=== PATIENT | female | born 1975 | race Hispanic/Latino ===

== ENCOUNTER → 2025-08-06 | Outpatient (CLI) | payer MEDICAID ==
[~2025-08-06] MED LIST: GADOTERATE MEGLUMINE 10 MMOL/20 ML VIAL IV ONE
--- NOTE | 2025-08-06 23:35 | HMCIMG ---
EXAM: MRI ABDOMEN WITH AND WITHOUT INTRAVENOUS CONTRAST Technique: Multiplanar, multisequence magnetic resonance imaging of the abdomen before and after intravenous gadolinium administration (T1- and T2-weighted, in- and opposed-phase, fat-suppressed, diffusion-weighted, and dynamic post-contrast sequences). Contrast: Gadoteric acid (Clariscan) 0.5 mmol/mL, 15 mL, intravenous. Clinical Information: History of right renal cell carcinoma (C64.1). Findings: Liver: Measures 14.8 cm with mild hepatic steatosis; no suspicious enhancing hepatic lesion. Gallbladder and biliary tree: Status post cholecystectomy; common bile duct measures 6 mm without intrahepatic biliary dilatation. Pancreas: Main pancreatic duct measures 1.2 mm; normal parenchymal signal and enhancement; no focal lesion. Spleen: Normal size and signal; no focal lesion. Adrenal glands: Normal bilaterally. Kidneys and ureters: Well-circumscribed heterogeneously enhancing mass arising from the superior pole of the right kidney measuring 2.5 ??? 2.8 cm; no macroscopic fat identified; no gross venous invasion or perinephric extension is seen on this exam. Simple exophytic renal cyst in the upper pole of the left kidney measuring 1.7 cm; additional kidneys otherwise unremarkable without hydronephrosis. Bowel: Visualized bowel loops are unremarkable without focal mural thickening. Lymph nodes: No pathologically enlarged abdominal lymph nodes. Vasculature: Major abdominal vessels of normal caliber and course on non-angiographic sequences. Abdominal wall/soft tissues: Unremarkable. Osseous structures: Degenerative changes in the visualized spine; posterior pedicle screw fixation at L3???L4 and T10???T12, partially imaged. IMPRESSION: 1. Heterogeneously enhancing right renal mass (2.5 ??? 2.8 cm) in the superior pole, compatible with renal cell carcinoma. No gross venous invasion or perinephric extension. Recommend urologic/oncologic management; correlation with prior operative history and consideration of nephron-sparing approaches where appropriate. Chest imaging for staging and multidisciplinary review are advised per institutional protocol. 2. Left renal simple cyst (1.7 cm), Bosniak I. 3. Mild hepatic steatosis without suspicious hepatic lesions. 4. Status post cholecystectomy; common bile duct 6 mm without intrahepatic biliary dilatation. 5. No pathologically enlarged abdominal lymph nodes. 6. Degenerative changes in the visualized spine; posterior pedicle screw fixation at L3???L4 and T10???T12, partially imaged. /[place]
--- NOTE | 2025-08-06 23:36 | HMCIMG ---
EXAM: MRI PELVIS WITH AND WITHOUT INTRAVENOUS CONTRAST Technique: Multiplanar, multisequence magnetic resonance imaging of the pelvis before and after intravenous gadolinium administration. Contrast: Gadoteric acid (Clariscan) 0.5 mmol/mL, 15 mL, intravenous. Clinical Information: History of right renal cell carcinoma (C64.1). Surveillance for pelvic involvement. Findings: Uterus: Normal size and morphology; endometrium measures 3 mm. No focal myometrial lesion identified. Adnexa: No adnexal mass identified within the imaged pelvis. Urinary bladder: Normal contour and wall thickness; no intraluminal mass. Bowel: Visualized pelvic bowel loops are unremarkable without focal mural thickening. Lymph nodes: No pathologically enlarged pelvic lymph nodes. Peritoneum and mesentery: No ascites or peritoneal/mesenteric nodularity. Vasculature: Pelvic vessels of normal caliber on non-angiographic sequences. Abdominal wall/soft tissues: Unremarkable. Osseous structures: No suspicious marrow-replacing lesion in the imaged pelvis. Posterior pedicle screw fixation spanning L3???L4 partially visualized. IMPRESSION: 1. No evidence of pelvic metastatic disease, including normal adnexa, no pathologically enlarged pelvic lymph nodes, and no peritoneal/mesenteric nodularity. 2. Normal uterus with 3 mm endometrium; no focal myometrial lesion identified. 3. Unremarkable urinary bladder with normal contour and wall thickness; no intraluminal mass. 4. Partially visualized L3-L4 posterior pedicle screw fixation without complication in the imaged area. 5. Visualized pelvic bowel loops are unremarkable without focal mural thickening. 6. No ascites or suspicious marrow-replacing lesions in the imaged pelvis. /[place]
== END | disposition home or self-care (01) ==
LOC: RAH 13:38
PROVIDERS: ATTEND Surgery Surgical Oncology
DX: C64.1 Malignant neoplasm of right kidney, except renal pelvis (principal); N28.1 Cyst of kidney, acquired; M47.817 Spondylosis without myelopathy or radiculopathy, lumbosacral region; M43.25 Fusion of spine, thoracolumbar region; Z90.49 Acquired absence of other specified parts of digestive tract; Z85.528 Personal history of other malignant neoplasm of kidney
CPT/HCPCS: 74183; 72197; A9575